=== PATIENT | female | born 1975 | race Caucasian/White ===

== ENCOUNTER → 2024-08-29 08:31 | Outpatient (REF) | payer BC, SELFPAY ==
[2024-08-29 09:55] LABS: % Basophils 1.1 % (0-2); % Eosinophils 8.9 % (0-6); % Immature Granulocytes 0.2 % (0-0.5); % Lymphocytes 21.1 % (20.5-51.1); % Monocytes 7.3 % (1.7-9.3); % Neutrophils 61.4 % (42.2-75.2); Absolute Basophils 0.1 10^3/uL (0-0.2); Absolute Eosinophils 0.8 10^3/uL (0-0.7); Absolute Lymphocytes 1.9 10^3/uL (1.2-3.4); Absolute Monocytes 0.7 10^3/uL (0.1-0.6); Absolute Neutrophils 5.6 10^3/uL (1.4-6.5); Hematocrit 43.5 % (37.0-47.0); Hemoglobin 14.8 g/dL (12.0-16.0); Mean Corpuscular Hgb 30.1 pg (27.0-31.0); Mean Corpuscular Volume 88.6 fL (81.0-99.0); Mean Platelet Volume 11.7 fL (7.4-10.4); Nucleated Red Blood Cells % 0 %; Platelet Count 238 10^3/uL (130-400); Red Blood Cell Count 4.91 10^6/uL (4.20-5.40); Red Cell Dist. Width 13.1 % (11.5-14.5); White Blood Cell Count 9.1 10^3/uL (4.8-10.8)
[2024-08-29 10:35] LABS: ALT (SGPT) 28 U/L (0-35); AST (SGOT) 25 U/L (14-36); Albumin 4.2 g/dl (3.5-5.0); Alkaline Phosphatase 101 U/L (38-126); Blood Urea Nitrogen 16 mg/dl (7-17); Calcium 9.4 mg/dl (8.4-10.2); Carbon Dioxide 28 mmol/L (22-30); Chloride 108 mmol/L (98-107); Glucose 88 mg/dl (70-99); HDL Cholesterol 75 mg/dl; LDL Cholesterol, Calculated 191 mg/dl; Potassium 4.5 mmol/L (3.5-5.1); Sodium 142 mmol/L (135-145); Total Bilirubin 0.6 mg/dl (0.2-1.3); Total Cholesterol 290 mg/dl (50-199); Triglyceride 122 mg/dl (10-149); Very Low Density Lipoprotein 24 mg/dl (0-30); eGFR > 60.00
[2024-08-29 10:55] LABS: Free T4 0.78 ng/dl (0.78-2.19); Vitamin D, 25-OH*** 24.5 ng/mL (30-80)
[2024-08-29 10:58] LABS: Glycohemoglobin (HgbA1c) 5.4 % (4.0-5.6)
[2024-08-29 11:09] LABS: TSH 0.91 uIU/ml (0.47-4.68)
[2024-08-29 15:02] LABS: Lyme Antibody Screen, EIA Negative (Negative)
== END ==
LOC: HWLAB 08:31
PROVIDERS: ATTENDING PHYSICIAN Nurse Practitioner Primary Care
DX: E78.2 Mixed hyperlipidemia (principal); R73.03 Prediabetes; R53.83 Other fatigue; E55.9 Vitamin D deficiency, unspecified
CPT/HCPCS: 36415; 80053; 80061; 82306; 83036; 84439; 84443; 85025; 86618

== ENCOUNTER → 2024-11-09 15:25 | Outpatient (REF) | payer BC, SELFPAY | LOC: WDC 15:25 | PROVIDERS: ATTENDING PHYSICIAN Nurse Practitioner Primary Care | DX: Z12.31 Encounter for screening mammogram for malignant neoplasm of breast (principal) | CPT/HCPCS: 77063; 77067 ==